=== PATIENT | female | born 1995 | race American Indian/Alaskan Native ===

== ENCOUNTER 2018-12-22 23:02 | Emergency (ER) | payer OTHER ==
[2018-12-22 23:33] VITALS: BP 120/70
[2018-12-23 00:12] LABS: HCG Qualitative,Urine Negative (Negative)
--- NOTE | 2018-12-23 01:09 | Emergency Department Report ---
HPI - General Chief Complaint: Urogenital-Female Time Seen by Provider: 12/23/18 00:09 - HPI HPI: This is a 22-year-old female who presents complaining of right breast lump and pain for the past 5 days. Patient states the at first she noticed a soreness type pain to her right breast. Patient states that today she noticed the there is a lump in that breast. She denies any trauma to the progress or injuries. She denies drainage, fever, chest pain chest of breath ED Past Medical Hx - Past Medical History Previous Medical History?: No - Surgical History Past Surgical History?: No - Social History Smoking Status: Never Smoker Substance Use Type: None - Medications Home Medications: Home Medications Medication Instructions Recorded Confirmed Last Taken Type Cyclobenzaprine HCl [Flexeril 5 MG 5 mg PO TID PRN #15 tab 02/24/15 Unknown Rx TAB] Ibuprofen [Motrin 600 MG tab] 600 mg PO Q8H PRN #15 tablet 12/23/18 Unknown Rx cephALEXin [Keflex] 500 mg PO Q12HR #14 cap 12/23/18 Unknown Rx ED Review of Systems ROS: Stated complaint: RT BREAST LUMP W/PAIN Other details as noted in HPI Comment: All other systems reviewed and negative Physical Exam - Physical Exam Vital Signs: Vital Signs 12/22/18 23:28 Temperature 97.7 F Pulse Rate 71 Respiratory 18 Rate Blood Pressure 120/70 O2 Sat by Pulse 97 Oximetry Physical Exam: GENERAL: Alert and oriented x3, no apparent distress, Normal Gait, atraumatic. BREAST: Symetrical, Supple bilaterally, No lesions, ulcerations. There is 6 cm tender mass/lump between 7- 8:00. No nipple discharge or drainage SKIN: Warm and dry, No lesions, No ulceration or induration present. ED Course Vital Signs 12/22/18 23:28 Temperature 97.7 F Pulse Rate 71 Respiratory 18 Rate Blood Pressure 120/70 O2 Sat by Pulse 97 Oximetry ED Medical Decision Making - Medical Decision Making 23-year-old female presents with tender breast mass. Discussed patient needs to follow-up with [facility] or breast specialist. Referrals given to patient. Discuss antibiotic trial and pain medication with heat compression 3 times a day. Critical care attestation.: If time is entered above; I have spent that time in minutes in the direct care of this critically ill patient, excluding procedure time. ED Disposition Clinical Impression: Breast mass in female, Breast pain, right Disposition: [id number] TO HOME OR SELFCARE Is pt being admited?: No Does the pt Need Aspirin: No Condition: Stable Instructions: Breast Mass (ED) Additional Instructions: Make sure to follow up with the primary care physician as discussed. Take all your medications as you've been prescribed. If you have any worsening symptoms or develop new symptoms please return to ED immediately. Prescriptions: cephALEXin [Keflex] 500 mg PO Q12HR #14 cap Ibuprofen [Motrin 600 MG tab] 600 mg PO Q8H PRN #15 tablet PRN Reason: Pain Referrals: MAI LEMUS MD [Primary Care Provider] - 3-5 Days [facility] [Provider Group] - 3-5 Days [facility] [Provider Group] - 3-5 Days [facility] [Provider Group] - 3-5 Days [facility] [Outside] - 3-5 Days Forms: Accompanied Note, Work/School Release Form(ED) Time of Disposition: 01:23
== END 2018-12-23 01:57 | disposition home or self-care (01) ==
LOC: ED 23:02
DX: N63.0 Unspecified lump in unspecified breast (principal); Z79.899 Other long term (current) drug therapy
CPT/HCPCS: 81025; 99283